=== PATIENT | male | born 1990 | race Hispanic/Latino ===

== ENCOUNTER 2024-06-08 12:25 | Emergency (ER) | payer SELFPAY ==
[~2024-06-08] VITALS: Ht 167.6 cm; Wt 117.9 kg
[~2024-06-08 12:25] MED LIST: ASPIRIN EC81 MG PO; CEFTRIAXON2 GM/50 ML IVP; CEFTRIAXONE2 G1 IM/IV; NIFEDIPINE ER30 M1 PO; SODIUM BICARBO650 MG PO
[2024-06-08 12:56] VITALS: TEMP 98.2
[2024-06-08 16:07] VITALS: PULSE 75; RESP 16; O2SAT 99
== END 2024-06-08 16:00 | disposition home or self-care (01) ==
LOC: ER 13:38
DX: Z45.2 Encounter for adjustment and management of vascular access device (principal); I10 Essential (primary) hypertension; E11.40 Type 2 diabetes mellitus with diabetic neuropathy, unspecified; Q61.3 Polycystic kidney, unspecified; Z86.73 Personal history of transient ischemic attack (TIA), and cerebral infarction without residual deficits
CPT/HCPCS: 36589; 74470; 99282